=== PATIENT | female | born 1945 | race Caucasian/White ===

== ENCOUNTER 2017-01-08 10:30 | Emergency (ER) | payer MEDICARE ==
[2017-01-08] MEDS ORDERED: Sodium Chloride 0.9% 1,000 ML ONE (11:07)
[2017-01-08] MEDS ORDERED: Ondansetron HCl/PF 4 MG/2 ML Vial ONE (11:07)
[2017-01-08 12:13] LABS: #Basophils 0.1 thou/uL (0.0-0.2); #Eosinphils 0.2 thou/uL (0.0-0.7); #Lymphocytes 0.9 thou/uL (1.20-3.40); #Monocytes 0.5 thou/uL (0.11-0.59); #Neutrophils 2.9 thou/uL (1.40-6.50); %Basophils 1.2 % (0.0-1.0); %Eosinophils 3.9 % (0.0-10.0); %Monocytes 11.4 % (0.0-10.0); %Neutrophils 64.5 % (42.0-75.0); Hemoglobin 13.1 g/dL (12.0-16.0); Mean Corpuscular HGB CONC 33.3 g/dL (32.0-36.0); Mean Platelet Volume 7.8 fL (7.4-10.4); Platelet Count 158 thou/uL (130-400); Red Blood Cell (RBC) Count 4.23 mill/uL (4.20-5.40); White Blood Cell (WBC) Count 4.5 thou/uL (4.8-10.8)
--- NOTE | 2017-01-08 12:13 | RAD ---
PA AND LATERAL VIEWS OF THE CHEST HISTORY: Cough and congestion. FINDINGS: The heart size is normal. The lungs are well expanded without focal areas of consolidation, pneumot horax, or pleural effusions. There are degenerative changes in the spine. IMPRESSION: No radiographic evidence of an acute cardiopulmonary process. POS: [facility]
[2017-01-08 12:17] LABS: Bilirubin Negative (Negative); Blood, Urine Trace (Negative); Clarity Clear (Clear); Glucose, Urine (Dipstick) 250 mg/dL (Negative); Leukocyte Negative (Negative); Nitrite Negative (Negative); Protein, Urine (Dipstick) Negative (Neg-Trace); Specific Gravity, Urine 1.015 (1.005-1.030); Urobilinogen 0.2 mg/dL (0.2-1.0); pH, Urine 5.5 (5.0-9.0)
[2017-01-08 12:19] LABS: Bacteria/HPF None Seen HPF (None Seen); RBC/HPF 0-3 HPF (0-3); Squamous Epithelial 0-3 HPF (0-3); WBC/HPF None Seen HPF (0-3)
[2017-01-08 12:26] LABS: ALT (SGPT) 18 U/L (0-55); AST (SGOT) 24 U/L (5-34); Alkaline Phosphatase 68 U/L (40-150); Anion Gap 14 mmol/L (10-20); BUN (Urea Nitrogen) 12 mg/dL (9.8-20.1); Bilirubin, Total 0.6 mg/dL (0.2-1.2); Calc. Creatinine Clearance 0 mL/min (70-130); Calcium 8.8 mg/dL (7.8-10.44); Carbon Dioxide 24 mmol/L (23-31); Chloride 101 mmol/L (98-107); Estimated GFR-MDRD 59; Globulin 3.2 g/dL (2.4-3.5); Glucose 267 mg/dL (80-115); Potassium 3.8 mmol/L (3.5-5.1); Protein, Total 7.2 g/dL (5.8-8.1); Sodium 135 mmol/L (136-145)
== END 2017-01-08 12:50 | disposition home or self-care (01) ==
LOC: NAV ERS 10:30
DX: B34.9 Viral infection, unspecified (principal); E10.65 Type 1 diabetes mellitus with hyperglycemia; I10 Essential (primary) hypertension; F17.210 Nicotine dependence, cigarettes, uncomplicated; Z79.82 Long term (current) use of aspirin; Z79.4 Long term (current) use of insulin; Z79.899 Other long term (current) drug therapy
CPT/HCPCS: 36415; 71020; 80053; 81003; 81015; 82010; 85025; 87081; 87430; 96361; 96374; J2405; J7050

== ENCOUNTER 2018-03-06 12:12 | Emergency (ER) | payer MEDICARE | END 2018-03-06 13:03 | disposition home or self-care (01) | LOC: NAV ERS 12:12 | DX: S81.802A Unspecified open wound, left lower leg, initial encounter (principal); L03.116 Cellulitis of left lower limb; I10 Essential (primary) hypertension; E11.9 Type 2 diabetes mellitus without complications; F17.210 Nicotine dependence, cigarettes, uncomplicated | CPT/HCPCS: 87070; 87205; 99283 ==

== ENCOUNTER 2024-03-13 12:40 | Emergency (ER) | payer MEDICARE ==
[2024-03-13 14:01] LABS: Bilirubin Negative (Negative); Blood, Urine Negative (Negative); Clarity Clear (Clear); Glucose, Urine (Dipstick) 250 mg/dL (Negative); Ketone, Urine 15 mg/dL (Negative); Leukocyte Small (Negative); Nitrite Negative (Negative); Protein, Urine (Dipstick) Negative (Neg-Trace); Urobilinogen 0.2 mg/dL (Less than 2)
[2024-03-13 14:08] LABS: CAUTI Indications for Culture Dysuria,urgency,freq; RBC/HPF None Seen HPF (0-3); Squamous Epithelial 0-3 HPF (0-3)
[2024-03-13 14:09] LABS: Bacteria/HPF None Seen HPF (None Seen); Urine Culture Reflex No No
[2024-03-13] MEDS ORDERED: Cephalexin 250 MG CAP ONE (14:23)
== END 2024-03-13 14:47 | disposition home or self-care (01) ==
LOC: NAV ERS 12:40
DX: N39.0 Urinary tract infection, site not specified (principal); E11.9 Type 2 diabetes mellitus without complications; I10 Essential (primary) hypertension; Z87.891 Personal history of nicotine dependence; Z79.4 Long term (current) use of insulin
CPT/HCPCS: 81001; 99284

== ENCOUNTER 2024-05-03 21:13 | Emergency (ER) | payer MEDICARE ==
[2024-05-03] MEDS ORDERED: Bacitracin 1 PK ONE (21:31)
[2024-05-03] MEDS ORDERED: Boostrix 0.5 ML (Tdap) VIAL (>/=7 yrs of age) ONE (21:32)
[2024-05-03] MEDS ORDERED: Cephalexin 250 MG CAP ONE (21:56)
== END 2024-05-03 22:10 | disposition home or self-care (01) ==
LOC: NAV ERS 21:13
DX: S81.832A Puncture wound without foreign body, left lower leg, initial encounter (principal); S80.811A Abrasion, right lower leg, initial encounter; I10 Essential (primary) hypertension; E11.9 Type 2 diabetes mellitus without complications; Z87.891 Personal history of nicotine dependence; Z79.4 Long term (current) use of insulin; W26.8XXA Contact with other sharp object(s), not elsewhere classified, initial encounter; Z23 Encounter for immunization
CPT/HCPCS: 90471; 90715